=== PATIENT | female | born 1975 | race African-American/Black ===

== ENCOUNTER 2017-09-14 13:18 | Emergency (ER) | payer MEDICAID, OTHER ==
[~2017-09-14] VITALS: Ht 160 cm; Wt 77.0 kg
[2017-09-14 14:20] LABS: HEMATOCRIT. 42.2 % (36.0-48.0); HEMOGLOBIN. 14.5 g/dL (12.0-16.0); MEAN CORPUSCULAR HEMOGLOBIN 28.4 pg (28.0-32.0); MEAN CORPUSCULAR VOLUME 82.7 fL (81.0-99.0); MEAN PLATELET VOLUME 8.3 fl (7.4-10.4); PLATELET 273 x1000/uL (130-400); RED CELL DISTRIBUTION WIDTH 14.9 % (11.6-14.6)
[2017-09-14 14:26] LABS: CHLORIDE 102 mEq/L (98-107)
[2017-09-14 14:38] LABS: INR 1.1
[2017-09-14 14:54] LABS: HCG SCREEN NEGATIVE
[2017-09-14 15:26] LABS: PLATELET ESTIMATE NORMAL
[2017-09-14] MEDS ORDERED: SODIUM CHLORIDE 0.9% 1,000 ML IV ONE (16:06)
[2017-09-14] MEDS ORDERED: ONDANSETRON HCL 4MG/2ML VIAL IV STA (16:06)
[2017-09-14 16:13] LABS: CLARITY URINE CLEAR (CLEAR); COLOR URINE YELLOW (YELLOW); KETONES URINE NEGATIVE (NEGATIVE); LEUKOCYTE ESTERASE URINE TRACE (NEGATIVE); NITRITE URINE NEGATIVE (NEGATIVE); OCCULT BLOOD URINE TRACE (NEGATIVE); PROTEIN URINE TRACE (NEGATIVE); SPECIFIC GRAVITY URINE 1.025 (1.005-1.030)
[2017-09-14 19:45] VITALS: BP 145/93
== END 2017-09-14 20:05 | disposition home or self-care (01) ==
LOC: ER 14:21
DX: R11.10 Vomiting, unspecified (principal); I10 Essential (primary) hypertension; Z88.0 Allergy status to penicillin
CPT/HCPCS: 36415; 80053; 81003; 83690; 84703; 85025; 85610; 96361; 96374; 99284; J2405; J7030; Z7610

== ENCOUNTER 2018-06-26 23:37 | Emergency (ER) | payer MEDICAID, OTHER ==
[~2018-06-26] VITALS: Ht 160 cm; Wt 86.0 kg
[2018-06-27] MEDS ORDERED: ONDANSETRON 4MG ODT PO ONE (04:00)
[2018-06-27] MEDS ORDERED: KETOROLAC 30MG/ML VIAL IV STA (09:10)
[2018-06-27] MEDS ORDERED: SODIUM CHLORIDE 0.9% 1,000 ML IV ONE (09:10)
[2018-06-27] MEDS ORDERED: ONDANSETRON HCL 4MG/2ML INJ IV STA (09:10)
[2018-06-27 09:36] VITALS: BP 127/78
== END 2018-06-27 11:00 | disposition home or self-care (01) ==
LOC: ER 23:37
DX: D35.2 Benign neoplasm of pituitary gland (principal); Z91.19 Patient's noncompliance with other medical treatment and regimen; I10 Essential (primary) hypertension
CPT/HCPCS: 70450; 81025; 96361; 96374; 96375; 99284; J1885; J2405; J7030; Q0162; Z7610

== ENCOUNTER 2018-09-17 17:33 | Emergency (ER) | payer MEDICAID, OTHER ==
[~2018-09-17] VITALS: Ht 160 cm; Wt 88.0 kg
[2018-09-17 17:45] VITALS: BP 184/90
== END 2018-09-17 20:02 | disposition left against medical advice (07) ==
LOC: ER 17:33
DX: Z53.21 Procedure and treatment not carried out due to patient leaving prior to being seen by health care provider (principal)